=== PATIENT | female | born 1975 | race Caucasian/White ===

== ENCOUNTER → 2016-04-19 | Outpatient (CLI) | payer OTHER ==
--- NOTE | 2016-04-19 14:11 | MA ---
Diagnostic Digital Left Mammogram History: Small nodule upper left breast. Comparison: March 15, 2016. Technique: A true lateral view and a spot view over the upper left breast.. Breast Density: B Findings: A small round nodular density does not persist and likely represented a cyst that has invol uted or something related to overlapping parenchymal structures.. Impression: Negative left breast. BI-RADS: Category 1 . Recommendation: Return to routine screening of both breasts in February 2017. Results and recommendation were communicated to the patient at the time of the examination.
== END ==
LOC: CIMAGING 13:44
DX: N63 Unspecified lump in breast (principal)
CPT/HCPCS: G0206

== ENCOUNTER → 2017-03-24 | Outpatient (CLI) | payer OTHER | LOC: FIMAGING 13:21 | PROVIDERS: ATTEND Obstetrics & Gynecology | DX: Z12.31 Encounter for screening mammogram for malignant neoplasm of breast (principal) | CPT/HCPCS: G0202 ==

== ENCOUNTER → 2018-04-01 | Outpatient (CLI) | payer OTHER | LOC: FIMAGING 14:26 | PROVIDERS: ATTEND Obstetrics & Gynecology | DX: Z12.31 Encounter for screening mammogram for malignant neoplasm of breast (principal); Z80.3 Family history of malignant neoplasm of breast ==

== ENCOUNTER → 2018-04-11 | Outpatient (CLI) | payer OTHER | LOC: BRMIMAGING 09:25 | PROVIDERS: ATTEND Obstetrics & Gynecology | DX: R92.8 Other abnormal and inconclusive findings on diagnostic imaging of breast (principal) | CPT/HCPCS: 76641-PO ==